=== PATIENT | male | born 1975 | race American Indian/Alaskan Native ===

== ENCOUNTER 2016-07-07 18:14 | Emergency (ER) | payer SELFPAY ==
--- NOTE | 2016-07-07 22:57 | Emergency Department Report ---
HPI - General Chief Complaint: Extremity Injury, Upper Time Seen by Provider: 07/07/16 22:40 - HPI HPI: 41-year-old male presents with right hand pain 1.5 weeks. Denies any injury or trauma. 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 Denies history of similar symptoms. Describes his pain as 9 out of 10 constant, sharp pain. Denies numbness, weakness, paresthesias. Denies trying any medication for pain relief. Denies fever, chills, nausea, vomiting, chest pain, shortness of breath , abdominal pain. ED Past Medical Hx - Past Medical History Previous Medical History?: No - Surgical History Additional Surgical History: KNEE SURGERY A KID - Social History Smoking Status: Current Every Day Smoker Substance Use Type: None - Medications Home Medications: Home Medications Medication Instructions Recorded Confirmed Last Taken Type Naproxen [Naprosyn] 500 mg PO BID #30 tablet 07/07/16 Unknown Rx ED Review of Systems ROS: Stated complaint: RT HAND SWOLLEN/PAIN Other details as noted in HPI Constitutional: denies: chills, fever, malaise Eyes: denies: eye pain ENT: denies: ear pain, throat pain, congestion Respiratory: denies: cough, shortness of breath, wheezing Cardiovascular: denies: chest pain, palpitations Endocrine: no symptoms reported Gastrointestinal: denies: abdominal pain, nausea, vomiting Musculoskeletal: arthralgia Neurological: denies: headache, weakness, numbness, paresthesias Physical Exam - Physical Exam Vital Signs: Vital Signs 07/07/16 18:29 Temperature 98.9 F Pulse Rate 98 H Respiratory 18 Rate Blood Pressure 159/87 O2 Sat by Pulse 97 Oximetry Physical Exam: GENERAL: The patient is well-developed and well-nourished. Patient is in NAD. HEAD: Normocephalic. Atraumatic. CHEST/LUNGS: Clear to auscultation throughout. HEART/CARDIOVASCULAR: Regular rate and rhythm. No murmurs, rubs or gallops. ABDOMEN: Abdomen is soft, nontender. Bowel sounds normoactive. No guarding or rebound tenderness. RIGHT HAND: Full wrist and digit range of motion. Tenderness to palpation over radial aspect of right wrist. No echymosis, edema or deformity noted. No tenderness to palpation of anatomic snuffbox. Normal sensation. 2 point discrimination intact. Peripheral pulses intact. Capillary refill less than 2 seconds. NEURO: Alert and oriented x 3. Normal gait. ED Course Vital Signs 07/07/16 18:29 Temperature 98.9 F Pulse Rate 98 H Respiratory 18 Rate Blood Pressure 159/87 O2 Sat by Pulse 97 Oximetry ED Medical Decision Making - Lab Data Vital Signs 07/07/16 18:29 Temperature 98.9 F Pulse Rate 98 H Respiratory 18 Rate Blood Pressure 159/87 O2 Sat by Pulse 97 Oximetry - Medical Decision Making 40-year-old male presents today with right hand pain 1.5 weeks. His x-rays also reveal no fracture or dislocation. Patient has been provided with a referral for orthopedic. Patient is in no acute distress at this time. He will be discharged home and is encouraged to follow up with a primary care provider. He will be sent home on Naprosyn and is encouraged to return to the emergency room for any worsening symptoms. Critical care attestation.: If time is entered above; I have spent that time in minutes in the direct care of this critically ill patient, excluding procedure time. ED Disposition Clinical Impression: Hand pain Qualifiers: Laterality: right Qualified Code(s): M79.641 - Pain in right hand Disposition: DISCHARGED TO HOME OR SELFCARE Is pt being admited?: No Does the pt Need Aspirin: No Condition: Stable Instructions: [place] Quervain Disease (ED) Additional Instructions: Follow up with orthopedic and primary care provider. Return to the emergency department if symptoms worsen. Prescriptions: Naproxen [Naprosyn] 500 mg PO BID #30 tablet Referrals: АНДРЕЙ CLINE MD [Primary Care Provider] - 3-5 Days SHENG CRYSTAL MD [Staff Physician] - 3-5 Days LUIS ALLEN MD [Staff Physician] - 3-5 Days Forms: Accompanied Note, Work/School Release Form(ED) Time of Disposition: 23:43
--- NOTE | 2016-07-07 23:16 | XRay Report ---
FINAL REPORT PROCEDURE: XR WRIST 3 RT TECHNIQUE: RIGHT wrist radiographs, including AP, lateral, oblique, and navicular views. HISTORY: pain over radial aspect of right wirst COMPARISON: No prior studies are available for comparison. FINDINGS: Fracture(s)and/or Dislocation(s): None. Alignment: Normal. Joint space(s): Normal. Soft tissues: Normal. Bone mineralization: Normal. Foreign bodies: None. IMPRESSION: Normal Examination
[2016-07-08 00:02] VITALS: BP 150/79
== END 2016-07-07 23:45 | disposition home or self-care (01) ==
LOC: ED 18:14
DX: M79.641 Pain in right hand (principal); F17.200 Nicotine dependence, unspecified, uncomplicated; X58.XXXA Exposure to other specified factors, initial encounter; Y93.9 Activity, unspecified; Y92.9 Unspecified place or not applicable; Y99.9 Unspecified external cause status
CPT/HCPCS: 99283

== ENCOUNTER 2016-08-08 10:08 | Emergency (ER) | payer SELFPAY ==
--- NOTE | 2016-08-08 16:20 | Emergency Department Report ---
ED General Adult HPI - General Chief complaint: High BP Stated complaint: POSS HIGH BP Time Seen by Provider: 08/08/16 16:11 Source: patient, RN notes reviewed Mode of arrival: Ambulatory Limitations: No Limitations - History of Present Illness Initial comments: This is a 41-year-old male. He is previously unknown to me. He presents to the ER with a complaint of asymptomatic hypertension. The patient presented for a work physical, was found to be hypertensive with a blood pressure systolic of 181. He is sent to the ER for further evaluation. The patient denies headache, neck pain, chest pain, abdominal pain, shortness of breath, vomiting, diaphoresis. There is no hematemesis or bright red blood per rectum. The patient had an unremarkable physical exam all in the ER, with the exception of mildly elevated blood pressure. He otherwise was asymptomatic. His physical examination was unremarkable. As per the [employer] clinical policy on asymptomatic hypertension: Are ED blood pressure readings accurate and reliable for screening asymptomatic patients for hypertension? Level A recommendations. None specified. Level B recommendations. If blood pressure measurements are persistently elevated with a systolic blood pressure greater than 140 mm Hg or diastolic blood pressure greater than 90 mm Hg, the patient should be referred for follow- up of possible hypertension and blood pressure management. Level C recommendations. Patients with a single elevated blood pressure reading may require further screening for hypertension in the outpatient setting. 2. Do asymptomatic patients with elevated blood pressures benefit from rapid lowering of their blood pressure? Level A recommendations. None specified. Level B recommendations. (1) Initiating treatment for asymptomatic hypertension in the ED is not necessary when patients have follow-up; (2) Rapidly lowering blood pressure in asymptomatic patients in the ED is unnecessary and may be harmful in some patients; (3) When ED treatment for asymptomatic hypertension is initiated, blood pressure management should attempt to gradually lower blood pressure and should not be expected to be normalized during the initial ED visit. -: Gradual Improves with: none Worsens with: none Associated Symptoms: denies other symptoms - Related Data Previous Rx's Medication Instructions Recorded Last Taken Type Naproxen [Naprosyn] 500 mg PO BID #30 tablet 07/07/16 Unknown Rx Allergies Allergy/AdvReac Type Severity Reaction Status Date / Time No Known Allergies Allergy Unverified 07/07/16 18:29 ED Review of Systems ROS: Stated complaint: POSS HIGH BP Other details as noted in HPI Constitutional: denies: fever Eyes: denies: vision change ENT: denies: epistaxis Respiratory: denies: cough Cardiovascular: denies: chest pain Gastrointestinal: denies: abdominal pain Genitourinary: as per HPI Musculoskeletal: as per HPI Skin: as per HPI Neurological: as per HPI Psychiatric: as per HPI ED Past Medical Hx - Past Medical History Previous Medical History?: No - Surgical History Past Surgical History?: Yes Additional Surgical History: KNEE SURGERY A KID - Social History Smoking Status: Current Every Day Smoker Substance Use Type: Alcohol - Medications Home Medications: Home Medications Medication Instructions Recorded Confirmed Last Taken Type Naproxen [Naprosyn] 500 mg PO BID #30 tablet 07/07/16 Unknown Rx ED Physical Exam - General Limitations: No Limitations General appearance: alert, in no apparent distress - Head Head exam: Present: atraumatic, normocephalic - Eye Eye exam: Present: normal appearance, PERRL, EOMI, other (visual acuity intact to finger counting, color perception, reading at a close distance). Absent: nystagmus - ENT ENT exam: Present: normal exam, normal orophraynx, mucous membranes moist, normal external ear exam - Neck Neck exam: Present: normal inspection, full ROM. Absent: tenderness, meningismus - Respiratory Respiratory exam: Present: normal lung sounds bilaterally. Absent: respiratory distress, wheezes, rales, rhonchi, stridor, chest wall tenderness, accessory muscle use, decreased breath sounds, prolonged expiratory - Cardiovascular Cardiovascular Exam: Present: regular rate, normal rhythm, normal heart sounds. Absent: bradycardia, tachycardia, irregular rhythm, systolic murmur, diastolic murmur, rubs, gallop - GI/Abdominal GI/Abdominal exam: Present: soft, normal bowel sounds. Absent: distended, tenderness, guarding, rebound, rigid, pulsatile mass - Rectal Rectal exam: Present: deferred - Extremities Exam Extremities exam: Present: normal inspection, full ROM, normal capillary refill. Absent: tenderness, pedal edema, joint swelling, calf tenderness - Back Exam Back exam: Present: normal inspection, full ROM. Absent: CVA tenderness (L), muscle spasm, paraspinal tenderness, vertebral tenderness - Neurological Exam Neurological exam: Present: alert, oriented X3, normal gait, other (Extraocular movements intact. Tongue midline. No facial droop. Facial sensation intact to light touch in the V1, V2, V3 distribution bilaterally. 5 and 5 strength in 4 extremities.. Sensation is intact to light touch in 4 extremities.). Absent : motor sensory deficit - Psychiatric Psychiatric exam: Present: normal affect, normal mood - Skin Skin exam: Present: warm, dry, intact, normal color. Absent: rash ED Course Vital Signs 08/08/16 08/08/16 08/08/16 10:25 14:11 15:29 Temperature 98 F Pulse Rate 68 Respiratory 16 Rate Blood Pressure 165/105 94/66 95/58 O2 Sat by Pulse 100 Oximetry 08/08/16 08/08/16 08/08/16 16:15 16:22 16:30 Temperature Pulse Rate Respiratory 16 Rate Blood Pressure 151/74 O2 Sat by Pulse 99 99 98 Oximetry - Reevaluation(s) Reevaluation #1: 08/08/16 16:38 Differential diagnosis: General medical evaluation, asymptomatic hypertension Assessment and plan: 41-year-old male with asymptomatic hypertension/elevated blood pressure. He has no complaints at this time. Physical examination is unremarkable with exception of elevated blood pressure. His blood pressure is currently 151/89. There does not appear to be any emergent condition at this time. I instructed the patient that he would need to follow up with a primary care doctor for clearance for work-related purposes, and I referred him to multiple local primary care doctors. The patient we discharged at this time. Return precautions were reviewed. ED Medical Decision Making - Lab Data Vital Signs 08/08/16 08/08/16 08/08/16 10:25 14:11 16:15 Temperature 98 F Pulse Rate 68 Respiratory 16 Rate Blood Pressure 165/105 94/66 O2 Sat by Pulse 100 99 Oximetry 08/08/16 16:22 Temperature Pulse Rate Respiratory 16 Rate Blood Pressure O2 Sat by Pulse 99 Oximetry Critical care attestation.: If time is entered above; I have spent that time in minutes in the direct care of this critically ill patient, excluding procedure time. ED Disposition Clinical Impression: Elevated blood pressure reading Disposition: DISCHARGED TO HOME OR SELFCARE Is pt being admited?: No Does the pt Need Aspirin: No Condition: Stable Instructions: Hypertension (ED) Additional Instructions: Follow-up with any listed primary care providers for further evaluation and management of possible elevated blood pressure. As we discussed, the diagnosis of hypertension/elevated blood pressure requires multiple readings. Follow-up with any listed physician groups within the next week to 10 days. Return to the ER right away with fevers, chills, chest pain, shortness of breath , nausea, vomiting, confusion, change in mental status, inability to tolerate liquid feeds. Referrals: PRIMARY CARE, [Primary Care Provider] - 3-5 Days JINA REVELES MD [Staff Physician] - 3-5 Days AXEL SWAN MD [Staff Physician] - 3-5 Days [facility] [Provider Group] - 3-5 Days
[2016-08-08 16:51] VITALS: BP 151/74
== END 2016-08-08 16:52 | disposition home or self-care (01) ==
LOC: ED 10:08
DX: R03.0 Elevated blood-pressure reading, without diagnosis of hypertension (principal); F17.200 Nicotine dependence, unspecified, uncomplicated
CPT/HCPCS: 99281